=== PATIENT | female | born 1990 | race Caucasian/White ===

== ENCOUNTER 2020-04-27 03:48 | Inpatient (IN) | payer BC ==
[2020-04-27] MEDS: Sodium Chloride 0.9% 10 ML Syringe FLUSH PRN ×2 (04:21→06:39)
[2020-04-27] MEDS ORDERED: Ondansetron 4 MG/2 ML SDV IVPUSH ONE (04:21)
[2020-04-27] MEDS ORDERED: HYDROmorphone 0.5 MG/0.5 ML Syringe IVPUSH ONE ×3 (04:21→09:37)
--- NOTE | 2020-04-27 04:25 | EDM.PDOC ---
ED HPI GENERAL MEDICAL PROBLEM - General Chief Complaint: Abdominal Pain Stated Complaint: ABDOMINAL PAIN Time Seen by Provider: 04/27/20 04:12 Source of Information: Reports: Patient, RN Notes Reviewed - History of Present Illness INITIAL COMMENTS - FREE TEXT/NARRATIVE: 30 yr old female with onset of lower abd and pelvic pain about 1 hr ago. She had felt fine all day yesterday and last evening. Pain is lower abd and pelvis with some radiation to her back. No void sx. She has had nausea but no vomiting or diarrhea. Hx of prior hysterectomy, has 1 ovary. Hx of prior appy. No fever or chills. Bilateral Lower Abdomen Pain Score (Numeric/FACES): 10 - Related Data Allergies Allergy/AdvReac Type Severity Reaction Status Date / Time No Known Allergies Allergy Verified 04/27/20 03:59 Home Meds: Home Meds Acetaminophen [Tylenol Extra Strength] 1,000 mg PO DAILY PRN 04/27/20 [History] Ibuprofen 600 mg PO DAILY PRN 04/27/20 [History] Past Medical History HEENT History: Reports: Impaired Vision Endocrine/Metabolic History: Reports: Obesity/BMI 30+ - Past Surgical History GI Surgical History: Reports: Appendectomy Female Surgical History: Reports: Hysterectomy Social & Family History - Tobacco Use Tobacco Use Status *Q: Current Every Day Tobacco User Years of Tobacco use: 11 Packs/Tins Daily: 0.5 - Caffeine Use Caffeine Use: Reports: Energy Drinks - Recreational Drug Use Recreational Drug Use: No ED ROS GENERAL - Review of Systems Review Of Systems: See Below Constitutional: Denies: Fever, Chills, Diaphoresis HEENT: Reports: No Symptoms Respiratory: Denies: Shortness of Breath Cardiovascular: Denies: Chest Pain GI/Abdominal: Reports: Abdominal Pain, Nausea. Denies: Constipation, Diarrhea, Vomiting Musculoskeletal: Reports: Back Pain Skin: Reports: No Symptoms Neurological: Reports: No Symptoms ED EXAM, GI/ABD - Physical Exam Exam: See Below General Appearance: Alert, Moderate Distress Head: Atraumatic Neck: Supple Respiratory/Chest: No Respiratory Distress, Lungs Clear, Normal Breath Sounds Cardiovascular: Regular Rate, Rhythm GI/Abdominal Exam: Guarding (mild), Rebound, Tender (lower mid abd and pelvis, mild tenderness upper mid abd) Back Exam: No: CVA Tenderness (L), CVA Tenderness (R) Extremities: Normal Inspection Skin Exam: Warm, Dry, Normal Color Course - Vital Signs Last Recorded V/S: Last Vital Signs Temp 98.1 F 04/27/20 19:59 Pulse 95 04/27/20 20:00 Resp 16 04/27/20 19:59 BP 112/68 04/27/20 19:59 Pulse Ox 92 L 04/27/20 20:00 - Orders/Labs/Meds Orders: Active Orders 24 hr Category Date Time Status Antiembolic Devices [RC] BID Care 04/27/20 10:40 Active Intake and Output [RC] 04,16 Care 04/27/20 10:40 Active Notify Provider [RC] ASDIRECTED Care 04/27/20 09:37 Active Oxygen Therapy [RC] PRN Care 04/27/20 10:40 Active RT Aerosol Therapy [RC] ASDIRECTED Care 04/27/20 10:44 Active RT Incentive Spirometry [RC] Q1HWA Care 04/27/20 10:39 Active Up With Assistance [RC] ASDIRECTED Care 04/27/20 10:39 Active VTE/DVT Education [RC] BID Care 04/27/20 10:40 Active Vital Signs [RC] 00,04,08,12,16,20 Care 04/27/20 10:40 Active Clear Liquid Diet [DIET] Diet 04/27/20 Dinner Active Abdomen 2V AP Flat Upright [CR] Stat Exams 04/27/20 04:22 Taken Abdomen Pelvis w Cont [CT] Stat Exams 04/27/20 05:13 Taken BASIC METABOLIC PANEL,BMP [CHEM] AM Lab 04/28/20 05:11 Ordered CBC WITH AUTO DIFF [HEME] AM Lab 04/28/20 05:11 Ordered Acetaminophen [TylenoL] Med 04/27/20 12:00 Active 650 mg PO Q4H Albuterol/Ipratropium [DuoNeb 3.0-0.5 MG/3 ML] Med 04/27/20 10:39 Active 3 ml NEB Q4H PRN HYDROmorphone [Dilaudid] Med 04/27/20 10:39 Active 0.5 mg IVPUSH Q3H PRN Heparin Sodium Med 04/27/20 16:00 Active 5,000 units SUBCUT Q8H Ketorolac [Toradol] Med 04/27/20 16:00 Active 30 mg IVPUSH Q6H Ondansetron [Zofran ODT] Med 04/27/20 16:00 Active 4 mg PO Q6H oxyCODONE Med 04/27/20 10:39 Active 5 mg PO Q4H PRN Peripheral IV Insertion Adult [OM.PC] Stat Oth 04/27/20 04:20 Ordered Schedule Procedure [COMM] Stat Ot 04/27/20 07:42 Ordered Sequential Compression Device [OM.PC] Per Unit Routine Oth 04/27/20 10:40 Ordered Resuscitation Status Routine Resus Stat 04/27/20 10:39 Ordered Medication Orders Acetaminophen (Tylenol) 650 mg PO Q4H [facility] Last Admin: 04/27/20 19:55 Dose: 650 mg Documented by: Admin: 04/27/20 16:35 Dose: 650 mg Documented by: Admin: 04/27/20 12:47 Dose: 650 mg Documented by: SOPHIE Albuterol/Ipratropium (Duoneb 3.0-0.5 Mg/3 Ml) 3 ml NEB Q4H PRN PRN Reason: Shortness Of Breath/wheezing Heparin Sodium (Porcine) (Heparin Sodium) 5,000 units SUBCUT Q8H [facility] Last Admin: 04/27/20 16:36 Dose: 5,000 units Documented by: EACHACORTA Hydromorphone HCl (Dilaudid) 0.5 mg IVPUSH Q3H PRN PRN Reason: Breakthrough Pain Last Admin: 04/27/20 20:19 Dose: 0.5 mg Documented by: TYRON Piperacillin Sod/Tazobactam (Sod 4.5 gm/ Sodium Chloride) 100 mls @ 25 mls/hr IV Q8H [facility] Stop: 04/30/20 22:01 Last Admin: 04/27/20 21:57 Dose: 25 mls/hr Documented by: TYRON Ketorolac Tromethamine (Toradol) 30 mg IVPUSH Q6H [facility] Last Admin: 04/27/20 21:56 Dose: 30 mg Documented by: Admin: 04/27/20 16:32 Dose: 30 mg Documented by: SOPHIE Ondansetron HCl (Zofran Odt) 4 mg PO Q6H [facility] Last Admin: 04/27/20 21:56 Dose: 4 mg Documented by: Admin: 04/27/20 16:36 Dose: 4 mg Documented by: SOPHIE Oxycodone HCl (Oxycodone) 5 mg PO Q4H PRN PRN Reason: Pain (moderate 4-6) Last Admin: 04/27/20 22:17 Dose: 5 mg Documented by: Admin: 04/27/20 18:04 Dose: 5 mg Documented by: SOPHIE Labs: Laboratory Tests 04/27/20 04/27/20 04/27/20 Range/Units 04:07 04:07 07:40 WBC 12.02 H (3.98-10.04) K/mm3 RBC 4.78 (3.98-5.22) M/mm3 Hgb 15.3 (11.2-15.7) gm/dl Hct 46.1 H (34.1-44.9) % MCV 96.4 H (79.4-94.8) fl MCH 32.0 (25.6-32.2) pg MCHC 33.2 (32.2-35.5) g/dl RDW Std Deviation 44.7 (36.4-46.3) fL Plt Count 366 (182-369) K/mm3 MPV 9.6 (9.4-12.3) fl Neut % (Auto) 77.9 H (34.0-71.1) % Lymph % (Auto) 16.5 L (19.3-51.7) % [place] % (Auto) 4.5 L (4.7-12.5) % Eos % (Auto) 0.8 (0.7-5.8) Baso % (Auto) 0.1 (0.1-1.2) % Neut # (Auto) 9.37 H (1.56-6.13) K/mm3 Lymph # (Auto) 1.98 (1.18-3.74) K/mm3 [place] # (Auto) 0.54 H (0.24-0.36) K/mm3 Eos # (Auto) 0.10 (0.04-0.36) K/mm3 Baso # (Auto) 0.01 (0.01-0.08) K/mm3 Manual Slide Review Abnormal smear Sodium 139 (136-145) mEq/L Potassium 3.4 L (3.5-5.1) mEq/L Chloride 103 (98-107) mEq/L Carbon Dioxide 22 (21-32) mEq/L Anion Gap 17.4 H (5-15) BUN 14 (7-18) mg/dL Creatinine 0.9 (0.55-1.02) mg/dL Est Cr Clr Drug Dosing 84.79 mL/min Estimated GFR (MDRD) > 60 (>60) mL/min BUN/Creatinine Ratio 15.6 (14-18) Glucose 139 H (74-106) mg/dL Calcium 8.9 (8.5-10.1) mg/dL Total Bilirubin 0.9 (0.2-1.0) mg/dL AST 11 L (15-37) U/L ALT 25 (14-59) U/L Alkaline Phosphatase 67 (46-116) U/L Total Protein 7.1 (6.4-8.2) g/dl Albumin 3.8 (3.4-5.0) g/dl Globulin 3.3 gm/dL Albumin/Globulin Ratio 1.2 (1-2) Urine Color (Yellow) Urine Appearance (Clear) Urine pH (5.0-8.0) Ur Specific [place] (1.005-1.030) Urine Protein (Negative) Urine Glucose (UA) (Negative) Urine Ketones (Negative) Urine Occult Blood (Negative) Urine Nitrite (Negative) Urine Bilirubin (Negative) Urine Urobilinogen (0.2-1.0) Ur Leukocyte Esterase (Negative) SARS-CoV-2 RNA (JAYNA) Negative (NEGATIVE) 04/27/20 Range/Units 08:48 WBC (3.98-10.04) K/mm3 RBC (3.98-5.22) M/mm3 Hgb (11.2-15.7) gm/dl Hct (34.1-44.9) % MCV (79.4-94.8) fl MCH (25.6-32.2) pg MCHC (32.2-35.5) g/dl RDW Std Deviation (36.4-46.3) fL Plt Count (182-369) K/mm3 MPV (9.4-12.3) fl Neut % (Auto) (34.0-71.1) % Lymph % (Auto) (19.3-51.7) % [place] % (Auto) (4.7-12.5) % Eos % (Auto) (0.7-5.8) Baso % (Auto) (0.1-1.2) % Neut # (Auto) (1.56-6.13) K/mm3 Lymph # (Auto) (1.18-3.74) K/mm3 [place] # (Auto) (0.24-0.36) K/mm3 Eos # (Auto) (0.04-0.36) K/mm3 Baso # (Auto) (0.01-0.08) K/mm3 Manual Slide Review Sodium (136-145) mEq/L Potassium (3.5-5.1) mEq/L Chloride (98-107) mEq/L Carbon Dioxide (21-32) mEq/L Anion Gap (5-15) BUN (7-18) mg/dL Creatinine (0.55-1.02) mg/dL Est Cr Clr Drug Dosing mL/min Estimated GFR (MDRD) (>60) mL/min BUN/Creatinine Ratio (14-18) Glucose (74-106) mg/dL Calcium (8.5-10.1) mg/dL Total Bilirubin (0.2-1.0) mg/dL AST (15-37) U/L ALT (14-59) U/L Alkaline Phosphatase (46-116) U/L Total Protein (6.4-8.2) g/dl Albumin (3.4-5.0) g/dl Globulin gm/dL Albumin/Globulin Ratio (1-2) Urine Color Light yellow (Yellow) Urine Appearance Slt cloudy H (Clear) Urine pH 7.0 (5.0-8.0) Ur Specific [place] 1.020 (1.005-1.030) Urine Protein Negative (Negative) Urine Glucose (UA) Negative (Negative) Urine Ketones Negative (Negative) Urine Occult Blood Negative (Negative) Urine Nitrite Negative (Negative) Urine Bilirubin Negative (Negative) Urine Urobilinogen 0.2 (0.2-1.0) Ur Leukocyte Esterase Negative (Negative) SARS-CoV-2 RNA (JAYNA) (NEGATIVE) Meds: Medications Generic Name Dose Route Start Last Admin Trade Name Freq PRN Reason Stop Dose Admin Acetaminophen 650 mg 04/27/20 12:00 04/27/20 19:55 Tylenol PO 650 mg Q4H LULA Administration Albuterol/Ipratropium 3 ml 04/27/20 10:39 Duoneb 3.0-0.5 Mg/3 Ml NEB Q4H PRN Shortness Of Breath/wheezing Heparin Sodium (Porcine) 5,000 units 04/27/20 16:00 04/27/20 16:36 Heparin Sodium SUBCUT 5,000 units Q8H LULA Administration Hydromorphone HCl 0.5 mg 04/27/20 10:39 04/27/20 20:19 Dilaudid IVPUSH 0.5 mg Q3H PRN Administration Breakthrough Pain Piperacillin Sod/Tazobactam 100 mls @ 25 mls/hr 04/27/20 22:00 04/27/20 21:57 Sod 4.5 gm/ Sodium Chloride IV 04/30/20 22:01 25 mls/hr Q8H LULA Administration Ketorolac Tromethamine 30 mg 04/27/20 16:00 04/27/20 21:56 Toradol IVPUSH 30 mg Q6H LULA Administration Ondansetron HCl 4 mg 04/27/20 16:00 04/27/20 21:56 Zofran Odt PO 4 mg Q6H LULA Administration Oxycodone HCl 5 mg 04/27/20 10:39 04/27/20 22:17 Oxycodone PO 5 mg Q4H PRN Administration Pain (moderate 4-6) Discontinued Medications Generic Name Dose Route Start Last Admin Trade Name Freq PRN Reason Stop Dose Admin Bupivacaine HCl/Epinephrine Bitart Confirm 04/27/20 07:57 Marcaine 0.5%/Epinephrine 1:200,000 Administered 04/27/20 07:58 Dose 50 ml .ROUTE .STK-MED ONE Cefazolin Sodium 2 gm 04/27/20 08:40 Ancef .ROUTE 04/27/20 08:41 .STK-MED ONE Diphenhydramine HCl 25 mg 04/27/20 09:37 Benadryl IVPUSH 04/27/20 13:00 Q6H PRN pruritis Fentanyl Confirm 04/27/20 08:17 Sublimaze Administered 04/27/20 08:18 Dose 250 mcg .ROUTE .STK-MED ONE Fentanyl Confirm 04/27/20 09:30 Sublimaze Administered 04/27/20 09:31 Dose 100 mcg .ROUTE .STK-MED ONE Fentanyl 50 mcg 04/27/20 09:37 04/27/20 11:20 Sublimaze IVPUSH 04/27/20 13:00 50 mcg Q5M PRN Administration Pain Fentanyl Confirm 04/27/20 09:54 Sublimaze Administered 04/27/20 09:55 Dose 100 mcg .ROUTE .STK-MED ONE Fentanyl Confirm 04/27/20 10:27 Sublimaze Administered 04/27/20 10:28 Dose 100 mcg .ROUTE .STK-MED ONE Hydromorphone HCl 0.5 mg 04/27/20 04:21 04/27/20 04:30 Dilaudid IVPUSH 04/27/20 04:22 0.5 mg ONETIME ONE Administration Hydromorphone HCl 0.5 mg 04/27/20 05:12 04/27/20 05:22 Dilaudid IVPUSH 04/27/20 05:13 0.5 mg ONETIME ONE Administration Hydromorphone HCl Confirm 04/27/20 09:00 Dilaudid Administered 04/27/20 09:01 Dose 0.5 mg .ROUTE .STK-MED ONE Hydromorphone HCl Confirm 04/27/20 09:17 Dilaudid Administered 04/27/20 09:18 Dose 0.5 mg .ROUTE .STK-MED ONE Hydromorphone HCl 0.5 mg 04/27/20 09:37 04/27/20 10:45 Dilaudid IVPUSH 04/27/20 09:38 0.5 mg ONETIME ONE Administration Hydromorphone HCl 0.5 mg 04/27/20 11:22 04/27/20 11:31 Dilaudid IVPUSH 0.5 mg ONETIME PRN Administration Pain (severe 7-10) Sodium Chloride 1,000 mls @ 150 mls/hr 04/27/20 04:30 04/27/20 05:20 Normal Saline IV 999 mls/hr ASDIRECTED LULA Infusion Sodium Chloride 1,000 mls @ 999 mls/hr 04/27/20 05:15 04/27/20 06:18 Normal Saline IV 999 mls/hr ONETIME LULA Administration Lidocaine HCl Confirm 04/27/20 08:19 Xylocaine-Mpf 1% Administered 04/27/20 08:20 Dose 4 mls @ as directed .ROUTE .STK-MED ONE Metronidazole Confirm 04/27/20 08:52 Flagyl 500 Mg In Ns 100 Ml Administered 04/27/20 08:53 Dose 100 mls @ as directed .ROUTE .STK-MED ONE Lactated Ringer's Confirm 04/27/20 09:43 Ringers, Lactated Administered 04/27/20 09:44 Dose 1,000 mls @ as directed .ROUTE .STK-MED ONE Dextrose/Sodium Chloride 1,000 mls @ 125 mls/hr 04/27/20 10:45 Dextrose 5%-1/2 Ns IV ASDIRECTED LULA Piperacillin Sod/Tazobactam 100 mls @ 200 mls/hr 04/27/20 14:00 04/27/20 14:11 Sod 4.5 gm/ Sodium Chloride IV 04/27/20 14:29 200 mls/hr ONETIME ONE Administration Iopamidol 100 ml 04/27/20 06:24 04/27/20 06:39 Isovue-300 (61%) IVPUSH 04/27/20 06:25 100 ml ONETIME ONE Administration Ketorolac Tromethamine 30 mg 04/27/20 10:00 Toradol .ROUTE 04/27/20 10:01 .STK-MED ONE Lidocaine/Epinephrine Confirm 04/27/20 07:57 Xylocaine 1% With Epinephrine 1:100,000 Administered 04/27/20 07:58 Dose 40 ml .ROUTE .STK-MED ONE Metoclopramide HCl 5 mg 04/27/20 05:12 04/27/20 05:21 Reglan IVPUSH 04/27/20 05:13 5 mg ONETIME ONE Administration Midazolam HCl Confirm 04/27/20 08:16 Versed 1 Mg/Ml Administered 04/27/20 08:17 Dose 2 mg .ROUTE .STK-MED ONE Ondansetron HCl 4 mg 04/27/20 04:21 04/27/20 04:29 Zofran IVPUSH 04/27/20 04:22 4 mg ONETIME ONE Administration Ondansetron HCl 4 mg 04/27/20 09:37 Zofran IVPUSH 04/27/20 17:00 ONETIME PRN Nausea/Vomiting Ondansetron HCl Confirm 04/27/20 09:52 Zofran Administered 04/27/20 09:53 Dose 4 mg .ROUTE .STK-MED ONE Propofol Confirm 04/27/20 08:19 Diprivan 20 Ml Administered 04/27/20 08:20 Dose 200 mg .ROUTE .STK-MED ONE Rocuronium [place] Confirm 04/27/20 08:18 Zemuron Administered 04/27/20 08:19 Dose 50 mg .ROUTE .STK-MED ONE Sodium Chloride 10 ml 04/27/20 04:20 04/27/20 06:39 Saline Flush FLUSH 10 ml ASDIRECTED PRN Administration Keep Vein Open - Re-Assessments/Exams Free Text/Narrative Re-Assessment/Exam: 04/27/20 05:16 Did get some relief from initial zofran and 0.5 mg IV and now pain is once again moderately severe. Continued quite marked tenderness bilat lower abd and pelvis, also tender mid and upper mid abd. WBC 12,000. Flat and upright shows moderate stool and gas in colon, no air fluid levels. Concern for possible ovarian torsion due to sudden onset, other 3tiology, constipation? although patient denies that, Will get CT Abd/pelvis. Repeat 0.5 mg dilaudid IV. 04/27/20 07:[address] indicates small amt of free air, mild free fluid in pelvis, see report for details. On re exam still very tender lower abd with moderate tenderness mid and upper abd. Continues to have rebound tenderness as well. Have discussed with Dr Cassidy, General Surgeon naval gunfire liaison officer will come see patient. Departure - Departure Time of Disposition: 07:00 Disposition: DC/Tfer to [facility] Condition: Serious Clinical Impression: Pelvic pain Abdominal pain Qualifiers: Abdominal location: lower abdomen, unspecified Qualified Code(s): R10.30 - Lower abdominal pain, unspecified - Discharge Information Sepsis Event Note (ED) - Evaluation Sepsis Screening Result: No Definite Risk - Focused Exam Vital Signs: Vital Signs Temp Temp Pulse Resp BP BP Pulse Ox 04/27/20 13:17 101 H 132/83 94 L 04/27/20 13:00 125/53 L 04/27/20 12:47 100 92/67 96 04/27/20 12:32 101 H 118/67 97 04/27/20 12:16 92 116/59 L 96 04/27/20 12:12 98.2 F 103 H 109/70 97 04/27/20 11:40 98.2 F 14 113/66 92 L 04/27/20 11:30 15 112/69 92 L 04/27/20 11:24 04/27/20 11:15 20 106/82 96 04/27/20 11:02 04/27/20 11:00 16 112/75 99 04/27/20 10:50 17 117/70 94 L 04/27/20 10:35 98.2 F 16 126/75 100 Pulse Ox 04/27/20 13:17 04/27/20 13:00 04/27/20 12:47 04/27/20 12:32 04/27/20 12:16 04/27/20 12:12 04/27/20 11:40 04/27/20 11:30 04/27/20 11:24 97 04/27/20 11:15 04/27/20 11:02 98 04/27/20 11:00 04/27/20 10:50 04/27/20 10:35 100 ED Communication - Discussed Case With (1) Discussed Case With (1): Admitting Provider (Dr Cassidy, decision to take to surgery at around 07:12.) - My Orders Last 24 Hours: My Active Orders 04/27/20 04:20 Peripheral IV Insertion Adult [OM.PC] Stat 04/27/20 04:22 Abdomen 2V AP Flat Upright [CR] Stat 04/27/20 05:13 Abdomen Pelvis w Cont [CT] Stat 04/27/20 07:42 Schedule Procedure [COMM] Stat - Assessment/Plan Last 24 Hours: My Active Orders 04/27/20 04:20 Peripheral IV Insertion Adult [OM.PC] Stat 04/27/20 04:22 Abdomen 2V AP Flat Upright [CR] Stat 04/27/20 05:13 Abdomen Pelvis w Cont [CT] Stat 04/27/20 07:42 Schedule Procedure [COMM] Stat
[2020-04-27] MEDS ORDERED: Sodium Chloride 0.9% 1,000 ML IV SCH ×2 (04:30→05:15)
[2020-04-27] MEDS ORDERED: Metoclopramide 10 MG/2 ML SDV IVPUSH ONE (05:12)
[2020-04-27] MEDS ORDERED: Iopamidol 612 MG/ML 100 ML Bottle IVPUSH ONE (06:24)
--- NOTE | 2020-04-27 07:34 | PCM.HP.2 ---
H&P History of Present Illness - General Date of Service: 04/27/20 Source of Information: Patient, Provider History Limitations: Reports: No Limitations - History of Present Illness Initial Comments - Free Text/Narative: 30-year-old lady who presents to the emergency department with acute onset of abdominal pain that started last evening. She reports she awakened during the night to severe lower abdominal/ pelvic pain. She thought she had strained some muscle while turning in the bed. She proceeded to the emergency department shortly thereafter. She reports feeling normal and in good health immediately prior to the onset of pain. She has a normal daily bowel movement. She denies any hematochezia or melena. On evaluation, she was noted by the ED provider to have tenderness in the lower abdomen. She had laboratory and CT evaluation. Her WBC count was elevated over 12,000, her CT findings indicated pneumoperitoneum with some free fluid in the pelvis. Surgery was consulted. Bilateral Lower Abdomen Pain Score (Numeric/FACES): 10 - Related Data Allergies/Adverse Reactions: Allergies Allergy/AdvReac Type Severity Reaction Status Date / Time No Known Allergies Allergy Verified 04/27/20 03:59 Home Medications: Home Meds Acetaminophen [Tylenol Extra Strength] 1,000 mg PO DAILY PRN 04/27/20 [History] Ibuprofen 600 mg PO DAILY PRN 04/27/20 [History] Past Medical History HEENT History: Reports: Impaired Vision Endocrine/Metabolic History: Reports: Obesity/BMI 30+ - Past Surgical History GI Surgical History: Reports: Appendectomy Female Surgical History: Reports: Hysterectomy Social & Family History - Family History Cardiac: Denies: High Cholesterol, Hypertension, [place] Neurological: Denies: CVA - Tobacco Use Tobacco Use Status *Q: Current Every Day Tobacco User Years of Tobacco use: 11 Packs/Tins Daily: 0.5 - Caffeine Use Caffeine Use: Reports: Energy Drinks - Recreational Drug Use Recreational Drug Use: No H&P Review of Systems - Review of Systems: Review Of Systems: See Below General: Reports: No Symptoms HEENT: Reports: No Symptoms Pulmonary: Reports: No Symptoms Cardiovascular: Reports: No Symptoms Gastrointestinal: Reports: Abdominal Pain, Nausea Genitourinary: Reports: No Symptoms Musculoskeletal: Reports: No Symptoms Skin: Reports: No Symptoms Neurological: Reports: No Symptoms Hematologic/Lymphatic: Reports: No Symptoms Exam - Exam Exam: See Below - Vital Signs Vital Signs: Last Vital Signs Temp 35.3 C L 04/27/20 03:56 Pulse 80 04/27/20 03:56 Resp 18 04/27/20 03:56 BP 127/92 H 04/27/20 03:56 Pulse Ox 95 04/27/20 03:56 Weight: 92.986 kg - Exam Quality Assessment: Supplemental Oxygen General: Alert, Oriented HEENT: Conjunctiva Clear, EOMI Neck: Supple Lungs: Normal Respiratory Effort Cardiovascular: Regular Rate, Regular Rhythm GI/Abdominal Exam: Soft, Guarding (Diffusely on abdomen), Rebound Extremities: No Pedal Edema Peripheral Pulses: 2+: Dorsalis Pedis (L), Dorsalis Pedis (R) Skin: Warm, Dry, Rash (Light brown 1cm macules in confluent configurations on the thoracoabdominal skin) Neurological: Cranial Nerves Intact Neuro Extensive - Mental Status: Alert, Oriented x3, Normal Mood/Affect - Patient Data Lab Results Last 24 hrs: Laboratory Results - last 24 hr 04/27/20 04/27/20 Range/Units 04:07 04:07 WBC 12.02 H (3.98-10.04) K/mm3 RBC 4.78 (3.98-5.22) M/mm3 Hgb 15.3 (11.2-15.7) gm/dl Hct 46.1 H (34.1-44.9) % MCV 96.4 H (79.4-94.8) fl MCH 32.0 (25.6-32.2) pg MCHC 33.2 (32.2-35.5) g/dl RDW Std Deviation 44.7 (36.4-46.3) fL Plt Count 366 (182-369) K/mm3 MPV 9.6 (9.4-12.3) fl Neut % (Auto) 77.9 H (34.0-71.1) % Lymph % (Auto) 16.5 L (19.3-51.7) % [place] % (Auto) 4.5 L (4.7-12.5) % Eos % (Auto) 0.8 (0.7-5.8) Baso % (Auto) 0.1 (0.1-1.2) % Neut # (Auto) 9.37 H (1.56-6.13) K/mm3 Lymph # (Auto) 1.98 (1.18-3.74) K/mm3 [place] # (Auto) 0.54 H (0.24-0.36) K/mm3 Eos # (Auto) 0.10 (0.04-0.36) K/mm3 Baso # (Auto) 0.01 (0.01-0.08) K/mm3 Manual Slide Review Abnormal smear Sodium 139 (136-145) mEq/L Potassium 3.4 L (3.5-5.1) mEq/L Chloride 103 (98-107) mEq/L Carbon Dioxide 22 (21-32) mEq/L Anion Gap 17.4 H (5-15) BUN 14 (7-18) mg/dL Creatinine 0.9 (0.55-1.02) mg/dL Est Cr Clr Drug Dosing 84.79 mL/min Estimated GFR (MDRD) > 60 (>60) mL/min BUN/Creatinine Ratio 15.6 (14-18) Glucose 139 H (74-106) mg/dL Calcium 8.9 (8.5-10.1) mg/dL Total Bilirubin 0.9 (0.2-1.0) mg/dL AST 11 L (15-37) U/L ALT 25 (14-59) U/L Alkaline Phosphatase 67 (46-116) U/L Total Protein 7.1 (6.4-8.2) g/dl Albumin 3.8 (3.4-5.0) g/dl Globulin 3.3 gm/dL Albumin/Globulin Ratio 1.2 (1-2) Result Diagrams: 04/27/20 04:07 04/27/20 04:07 Sepsis Event Note - Evaluation Sepsis Screening Result: No Definite Risk - Focused Exam Vital Signs: Vital Signs Temp Pulse Resp BP Pulse Ox 04/27/20 03:56 35.3 C L 80 18 127/92 H 95 *Q Meaningful Use (ADM) - VTE Risk Assess *Q Each Risk Factor Represents 1 Point: Obesity ( BMI > 25 kg/m2) Total Score 1 Point Risk Factors: 1 Each Risk Factor Represents 2 Points: Major surgery greater than 45 minutes Total Score 2 Point Risk Factors: 2 - Problem List (1) Pneumoperitoneum of unknown etiology SNOMED Code(s): 13041892 ICD Code: K66.8 - OTHER SPECIFIED DISORDERS OF PERITONEUM Status: Acute Current Visit: Yes (2) Abdominal pain SNOMED Code(s): 81593503 ICD Code: R10.9 - UNSPECIFIED ABDOMINAL PAIN Status: Acute Current Visit: Yes Qualifiers: Abdominal location: lower abdomen, unspecified Qualified Code(s): R10.30 - Lower abdominal pain, unspecified Problem List Initiated/Reviewed/Updated: Yes Orders Last 24hrs: Active Orders 24 hr Category Date Time Status Peripheral IV Care [RC] . DIRECTED Care 04/27/20 04:21 Active Abdomen 2V AP Flat Upright [CR] Stat Exams 04/27/20 04:22 Taken Abdomen Pelvis w Cont [CT] Stat Exams 04/27/20 05:13 Taken CORONAVIRUS COVID-19 JAYNA [MOLEC] Stat Lab 04/27/20 07:28 Ordered UA W/GARETT RFLX IF INDICATED [URIN] Stat Lab 04/27/20 04:20 Ordered Sodium Chloride 0.9% [Normal Saline] 1,000 ml Med 04/27/20 04:30 Active IV ASDIRECTED Sodium Chloride 0.9% [Normal Saline] 1,000 ml Med 04/27/20 05:15 Active IV ONETIME Sodium Chloride 0.9% [Saline Flush] Med 04/27/20 04:20 Active 10 ml FLUSH ASDIRECTED PRN Peripheral IV Insertion Adult [OM.PC] Stat Oth 04/27/20 04:20 Ordered Medication Orders Sodium Chloride (Normal Saline) 1,000 mls @ 150 mls/hr IV ASDIRECTED LULA Last Infusion: 04/27/20 05:20 Dose: 999 mls/hr Documented by: Admin: 04/27/20 04:29 Dose: 150 mls/hr Documented by: PADILLA Sodium Chloride (Normal Saline) 1,000 mls @ 999 mls/hr IV ONETIME LULA Last Admin: 04/27/20 06:18 Dose: 999 mls/hr Documented by: PADILLA Sodium Chloride (Saline Flush) 10 ml FLUSH ASDIRECTED PRN PRN Reason: Keep Vein Open Last Admin: 04/27/20 06:39 Dose: 10 ml Documented by: Admin: 04/27/20 04:21 Dose: 10 ml Documented by: PADILLA Assessment/Plan Comment:: 30-year-old lady with pneumoperitoneum of uncertain etiology -We will plan for exploratory laparotomy with possible bowel resection, possible ostomy, and any other indicated procedure. Discussed with risks of bleeding, infection, and injury to intra-abdominal structures. Her written consent was obtained. I discussed with the patient that it may be that we find no discrete pathology, the patient is however agreeable to proceeding -COVID repeat test not needed due to recent COVID illness and recovery -N.p.o. with IV fluid resuscitation -Will need inpatient stay postoperatively Anahi Tran MD - Mortality Measure Prognosis:: Good
[2020-04-27] MEDS ORDERED: Bupivacaine 0.5%/EPINEPHrine 1:200,000 50 ML MDV ONE (07:57)
[2020-04-27] MEDS ORDERED: Lidocaine 1% with EPINEPHrine 1:100,000 20 ML MDV ONE (07:57)
--- NOTE | 2020-04-27 08:07 | PCM.PREANE ---
Preanesthetic Assessment - Anesthesia/Transfusion/Family Hx Anesthesia History: Prior Anesthesia Without Reaction Family History of Anesthesia Reaction: No Transfusion History: No Prior Transfusion(s) - Review of Systems General: No Symptoms Pulmonary: No Symptoms Cardiovascular: No Symptoms Gastrointestinal: Abdominal Pain Neurological: No Symptoms Other: Reports: None - Physical Assessment NPO Status Date: 04/27/20 NPO Status Time: 06:30 Vital Signs: Last Vital Signs Temp 35.3 C L 04/27/20 03:56 Pulse 80 04/27/20 03:56 Resp 18 04/27/20 03:56 BP 127/92 H 04/27/20 03:56 Pulse Ox 95 04/27/20 03:56 Height: 1.68 m Weight: 92.986 kg ASA Class: 2E Mental Status: Alert & Oriented x3 Airway Class: Mallampati = 1 Dentition: Reports: Normal Dentition Thyro-Mental Finger Breadths: 3 Mouth Opening Finger Breadths: 3 ROM/Head Extension: Full Lungs: Clear to Auscultation, Normal Respiratory Effort - Lab Values: Laboratory Last Values WBC 12.02 K/mm3 (3.98-10.04) H 04/27/20 04:07 RBC 4.78 M/mm3 (3.98-5.22) 04/27/20 04:07 Hgb 15.3 gm/dl (11.2-15.7) 04/27/20 04:07 Hct 46.1 % (34.1-44.9) H 04/27/20 04:07 MCV 96.4 fl (79.4-94.8) H 04/27/20 04:07 MCH 32.0 pg (25.6-32.2) 04/27/20 04:07 MCHC 33.2 g/dl (32.2-35.5) 04/27/20 04:07 RDW Std Deviation 44.7 fL (36.4-46.3) 04/27/20 04:07 Plt Count 366 K/mm3 (182-369) 04/27/20 04:07 MPV 9.6 fl (9.4-12.3) 04/27/20 04:07 Neut % (Auto) 77.9 % (34.0-71.1) H 04/27/20 04:07 Lymph % (Auto) 16.5 % (19.3-51.7) L 04/27/20 04:07 [place] % (Auto) 4.5 % (4.7-12.5) L 04/27/20 04:07 Eos % (Auto) 0.8 (0.7-5.8) 04/27/20 04:07 Baso % (Auto) 0.1 % (0.1-1.2) 04/27/20 04:07 Neut # (Auto) 9.37 K/mm3 (1.56-6.13) H 04/27/20 04:07 Lymph # (Auto) 1.98 K/mm3 (1.18-3.74) 04/27/20 04:07 [place] # (Auto) 0.54 K/mm3 (0.24-0.36) H 04/27/20 04:07 Eos # (Auto) 0.10 K/mm3 (0.04-0.36) 04/27/20 04:07 Baso # (Auto) 0.01 K/mm3 (0.01-0.08) 04/27/20 04:07 Manual Slide Review Abnormal smear 04/27/20 04:07 Sodium 139 mEq/L (136-145) 04/27/20 04:07 Potassium 3.4 mEq/L (3.5-5.1) L 04/27/20 04:07 Chloride 103 mEq/L (98-107) 04/27/20 04:07 Carbon Dioxide 22 mEq/L (21-32) 04/27/20 04:07 Anion Gap 17.4 (5-15) H 04/27/20 04:07 BUN 14 mg/dL (7-18) 04/27/20 04:07 Creatinine 0.9 mg/dL (0.55-1.02) 04/27/20 04:07 Est Cr Clr Drug Dosing 84.79 mL/min 04/27/20 04:07 Estimated GFR (MDRD) > 60 mL/min (>60) 04/27/20 04:07 BUN/Creatinine Ratio 15.6 (14-18) 04/27/20 04:07 Glucose 139 mg/dL (74-106) H 04/27/20 04:07 Calcium 8.9 mg/dL (8.5-10.1) 04/27/20 04:07 Total Bilirubin 0.9 mg/dL (0.2-1.0) 04/27/20 04:07 AST 11 U/L (15-37) L 04/27/20 04:07 ALT 25 U/L (14-59) 04/27/20 04:07 Alkaline Phosphatase 67 U/L (46-116) 04/27/20 04:07 Total Protein 7.1 g/dl (6.4-8.2) 04/27/20 04:07 Albumin 3.8 g/dl (3.4-5.0) 04/27/20 04:07 Globulin 3.3 gm/dL 04/27/20 04:07 Albumin/Globulin Ratio 1.2 (1-2) 04/27/20 04:07 - Allergies Allergies/Adverse Reactions: Allergies Allergy/AdvReac Type Severity Reaction Status Date / Time No Known Allergies Allergy Verified 04/27/20 03:59 - Acknowledgements Anesthesia Type Planned: General Anesthesia Pt an Appropriate Candidate for the Planned Anesthesia: Yes Alternatives and Risks of Anesthesia Discussed w Pt/Guardian: Yes Pt/Guardian Understands and Agrees with Anesthesia Plan: Yes PreAnesthesia Questionnaire HEENT History: Reports: Impaired Vision Cardiovascular History: Reports: None Respiratory History: Reports: None Gastrointestinal History: Reports: None Genitourinary History: Reports: None Psychiatric History: Reports: None Endocrine/Metabolic History: Reports: Obesity/BMI 30+ - Past Surgical History HEENT Surgical History: Reports: Oral Surgery GI Surgical History: Reports: Appendectomy Female Surgical History: Reports: Hysterectomy - SUBSTANCE USE Tobacco Use Status *Q: Current Every Day Tobacco User Recreational Drug Use History: No - HOME MEDS Home Medications: Home Meds . [No Known Home Meds] 04/27/20 [History] - CURRENT (IN HOUSE) MEDS Current Meds: Current Medications Sodium Chloride (Normal Saline) 1,000 mls @ 150 mls/hr IV ASDIRECTED LULA Last Infusion: 04/27/20 05:20 Dose: 999 mls/hr Documented by: Sodium Chloride (Normal Saline) 1,000 mls @ 999 mls/hr IV ONETIME LULA Last Admin: 04/27/20 06:18 Dose: 999 mls/hr Documented by: Sodium Chloride (Saline Flush) 10 ml FLUSH ASDIRECTED PRN PRN Reason: Keep Vein Open Last Admin: 04/27/20 06:39 Dose: 10 ml Documented by: Discontinued Medications Bupivacaine HCl/Epinephrine Bitart (Marcaine 0.5%/Epinephrine 1:200,000) Confirm Administered Dose 50 ml .ROUTE .STK-MED ONE Stop: 04/27/20 07:58 Hydromorphone HCl (Dilaudid) 0.5 mg IVPUSH ONETIME ONE Stop: 04/27/20 04:22 Last Admin: 04/27/20 04:30 Dose: 0.5 mg Documented by: Hydromorphone HCl (Dilaudid) 0.5 mg IVPUSH ONETIME ONE Stop: 04/27/20 05:13 Last Admin: 04/27/20 05:22 Dose: 0.5 mg Documented by: Iopamidol (Isovue-300 (61%)) 100 ml IVPUSH ONETIME ONE Stop: 04/27/20 06:25 Last Admin: 04/27/20 06:39 Dose: 100 ml Documented by: Lidocaine/Epinephrine (Xylocaine 1% With Epinephrine 1:100,000) Confirm Adminis tered Dose 40 ml .ROUTE .STK-MED ONE Stop: 04/27/20 07:58 Metoclopramide HCl (Reglan) 5 mg IVPUSH ONETIME ONE Stop: 04/27/20 05:13 Last Admin: 04/27/20 05:21 Dose: 5 mg Documented by: Ondansetron HCl (Zofran) 4 mg IVPUSH ONETIME ONE Stop: 04/27/20 04:22 Last Admin: 04/27/20 04:29 Dose: 4 mg Documented by:
[2020-04-27] MEDS ORDERED: Midazolam 1 MG/ML 2 ML SDV ONE (08:16)
[2020-04-27] MEDS ORDERED: fentaNYL 250 MCG/5 ML SDV ONE (08:17)
[2020-04-27] MEDS ORDERED: Rocuronium 50 MG/5 ML Vial ONE (08:18)
[2020-04-27] MEDS ORDERED: Lidocaine 1% 4 ML ONE (08:19)
[2020-04-27] MEDS ORDERED: Propofol 200 MG/20 ML SDV ONE (08:19)
[2020-04-27] MEDS ORDERED: Succinylcholine/Sod PF 100 MG/5 ML SYRINGE IV ONE (08:22)
[2020-04-27] MEDS ORDERED: ceFAZolin 1 GM Vial ONE (08:40)
[2020-04-27] MEDS ORDERED: metroNIDAZOLE/Normal Saline 100 ML ONE (08:52)
[2020-04-27] MEDS ORDERED: HYDROmorphone 0.5 MG/0.5 ML Syringe ONE ×2 (09:00→09:17)
[2020-04-27] MEDS ORDERED: fentaNYL 100 MCG/2 ML SDV ONE ×3 (09:30→10:27)
[2020-04-27] MEDS ORDERED: diphenhydrAMINE 50 MG/ML SDV IVPUSH PRN (09:37)
[2020-04-27] MEDS ORDERED: fentaNYL 100 MCG/2 ML SDV IVPUSH PRN (09:37)
[2020-04-27] MEDS ORDERED: Ondansetron 4 MG/2 ML SDV IVPUSH PRN (09:37)
[2020-04-27] MEDS ORDERED: Lactated Ringers 1,000 ML ONE (09:43)
[2020-04-27] MEDS ORDERED: Ondansetron 4 MG/2 ML SDV ONE (09:52)
[2020-04-27] MEDS ORDERED: Ketorolac 30 MG/ML SDV ONE (10:00)
--- NOTE | 2020-04-27 10:36 | PCM.OPNOTE ---
- General Post-Op/Procedure Note Date of Surgery/Procedure: 04/27/20 Operative Procedure(s): 1. Exploratory laparotomy. 2. Repair of vaginal cuff. 3. Abdominal washout Findings: 1. Murky fluid in the abdomen and pelvis with 2. purulent fluid consistent with abscess concentrated in the pelvis, and some over the liver 3. Vaginal cuff dehiscence Pre Op Diagnosis: Pneumoperitoneum Post-Op Diagnosis: Vaginal cuff dehiscence with abdominal abscess Anesthesia Technique: General ET Tube Primary Surgeon: Anahi Tran Secondary Surgeon: Wes Juarez Anesthesia Provider: Samantha Jimenez Pathology: none Fluid Replacement, Intraop: 1,700 Output, Urine Amount: 700 EBL in mLs: 50 Drain/Tube Comments:: castaneda catheter Complications: none apparent Condition: Good
[2020-04-27] MEDS ORDERED: Albuterol/Ipratropium 3.0-0.5 MG/3 ML Neb Soln NEB PRN (10:39)
--- NOTE | 2020-04-27 10:42 | PCM.POSTAN ---
POST ANESTHESIA ASSESSMENT - MENTAL STATUS Mental Status: Alert, Oriented - VITAL SIGNS Vital Signs: Last Vital Signs Temp 35.3 C L 04/27/20 03:56 Pulse 80 04/27/20 03:56 Resp 18 04/27/20 03:56 BP 127/92 H 04/27/20 03:56 Pulse Ox 95 04/27/20 03:56 - RESPIRATORY Respiratory Status: Respiratory Rate WNL, Airway Patent, O2 Saturation Stable - CARDIOVASCULAR CV Status: Pulse Rate WNL, Blood Pressure Stable - GASTROINTESTINAL GI Status: No Symptoms - POST OP HYDRATION Hydration Status: Adequate & Stable
[2020-04-27] MEDS ORDERED: Dextrose 5%-0.45% NaCl 1,000 ML IV SCH (10:45)
--- NOTE | 2020-04-27 10:46 | PCM.PRNOTE ---
- Free Text/Narrative Note: Operative Report Date of surgery: April 27 2020 Preoperative diagnosis: Pneumoperitoneum Postoperative diagnosis: Vaginal cuff dehiscence with intra-abdominal abscess Procedure: 1. Exploratory laparotomy 2. Repair of vaginal cuff dehiscence 3. Abdominal washout Surgeon: Anahi Tran MD and Wes Juarez MD Anesthesia: General endotracheal Tire Builder: Samantha Jimenez CRNA Estimated blood loss: 50 mL IV fluids: 1700 mL Urine output: 700 mL Drains and lines: Briscoe catheter Findings: 1. Murky fluid in the abdomen and pelvis with 2. purulent fluid consistent with abscess concentrated in the pelvis, and some over the liver 3. Vaginal cuff dehiscence Pathology: None Indication for the procedure: The patient is a 30-year-old female who presented to the emergency department with acute onset of abdominal pain. She underwent evaluation with emergency medicine provider that included a CT scan of her abdomen pelvis. She had findings of pneumoperitoneum and free fluid in the pelvis. There was no clear etiology of this as the bowel and other organs did not have any significant pathology. The patient did have findings of acute abdomen and peritonitis. She was consented for an exploratory laparotomy, possible bowel resection, possible ostomy, and any other indicated procedure. We discussed risks of bleeding, infection, and risk to intra-abdominal organs. Her written consent was obtained Description of the procedure: The patient was taken back to the operating room and placed in supine position on the operating table. She had successful induction of general anesthesia and was intubated without difficulty. She had administration of antibiotics according to SCIP guidelines, Ancef 2 g IV and metronidazole 500 mg IV. A Briscoe catheter was placed with return of yellow urine containing some sediment. She was then prepped and draped in standard surgical fashion. We began by marking a midline vertical incision which was then opened using the scalpel and deepened down to the level of fascia using the Bovie device. The fascia was then entered gently using the Bovie device. There was some murky fluid that was immediately evident in the abdomen. We then proceeded to place the Guy retractor for better visualization. During this we did find purulent drainage within the abdomen. We then proceeded to explore the abdomen. There was a collection of purulent fluid in the right upper quadrant near liver. This was suctioned. In the pelvis there was more concentrated purulent fluid consistent with an abscess. We proceeded to more fully explore the pelvis and noticed some fibrinous exudate and an abnormal appearance at her vaginal cuff. There was concern for vaginal dehiscence. We proceeded to run the bowel. Starting at the ligament of Treitz, the small bowel was fully evaluated without signs of any erythema or induration. The colon was mildly dilated but otherwise normal in appearance. The patient did have evidence of a previous appendectomy. An intraoperative consult with the on-call [employer] SPLICER, Dr. Wes Juarez, was then obtained. He scrubbed into the procedure and evaluated the vaginal cuff. Please see details of his dictation for this portion of the procedure. We did determine that the patient had evidence of a vaginal cuff dehiscence. This was then oversewn using 0 PDS and imbricated with a second layer of 0 PDS. The abdomen was then copiously irrigated with 3 L of warm saline. There was no evidence of any other intra-abdominal pathology. We then closed the abdomen using a running 0 PDS suture on the fascia. The abdominal wall fat was then irrigated and the skin reapproximated using albina. A dry dressing was applied. The patient was then awakened and extubated without difficulty. She was transported to the PACU in stable condition. Briscoe catheter was left in place for continued monitoring of urine output. She will recover on the floor on continued antibiotics and awaiting return of bowel function. Anahi Tran MD General Surgery
[2020-04-27] MEDS ORDERED: HYDROmorphone 0.5 MG/0.5 ML Syringe IVPUSH PRN (11:22)
--- NOTE | 2020-04-27 11:30 | PCM48HPAN ---
Post Anesthesia Note - EVALUATION WITHIN 48HRS OF ANESTHETIC Vital Signs in Normal Range: Yes Patient Participated in Evaluation: Yes Respiratory Function Stable: Yes Airway Patent: Yes Cardiovascular Function Stable: Yes Hydration Status Stable: Yes Pain Control Satisfactory: No Nausea and Vomiting Control Satisfactory: Yes Mental Status Recovered: Yes Vital Signs: Last Vital Signs Temp 36.8 C 04/27/20 10:35 Pulse 80 04/27/20 03:56 Resp 20 04/27/20 11:15 BP 106/82 04/27/20 11:15 Pulse Ox 97 04/27/20 11:24
[2020-04-27] MEDS: Acetaminophen 325 MG Tab PO SCH ×3 (12:47→19:55)
[2020-04-27] MEDS ORDERED: Piperacillin/Tazobactam 4.5 GM in Sodium Chloride 0.9% 100 ML IV ONE (14:00)
--- NOTE | 2020-04-27 14:00 | PCM.OPNOTE ---
- General Post-Op/Procedure Note Date of Surgery/Procedure: 04/27/20 Operative Procedure(s): Repair of vaginal dehiscence following previous total laparoscopic hysterectomy Findings: Vaginal cuff with dehiscence along previous suture line measuring approximately 4 mm in length with small amount of erythema and granulation tissue present around the vaginal cuff dehiscence. No bleeding noted. Normal-appearing ovaries bilaterally. Normal large and small intestines per examination by Dr. Tran. Pre Op Diagnosis: Acute surgical abdomen, pelvic abscess and pneumoperitoneum on imaging Post-Op Diagnosis: Same with vaginal cuff dehiscence of 4 mm area at the vaginal cuff Primary Surgeon: Anahi Tran Secondary Surgeon: Wes Juarez Anesthesia Provider: Samantha Jimenez Pathology: None Fluid Replacement, Intraop: 1,700 Output, Urine Amount: 700 EBL in mLs: 50 Complications: None Condition: Good Free Text/Narrative:: Intake & Output 04/26/20 04/27/20 04/27/20 22:59 06:59 14:59 Intake Total 2000 Output Total 1575 Balance 425 Procedure in detail: I was consulted into the exploratory laparotomy case that had been started by Dr. Cassidy for acute surgical abdomen with abdominal abscess and pneumoperitoneum. There was concern that she may have had a ruptured diverticulum leading to the abscess. Dr. Cassidy had performed a midline vertical laparotomy and had performed for evaluation of the large and small intestines with no evidence of injury or perforation. She had concerns that there was a vaginal cuff dehiscence and desired to have intraoperative consult from gynecologic provider for evaluation of possible vaginal cuff dehiscence. She reported that the patient had a hysterectomy in July 2019 but was not certain of the exact type of hysterectomy. Records not available for exact type of hysterectomy. On evaluation of the pelvis there was noted to be ovaries present bilaterally that were normal in appearance. No abnormalities were noted of the ovaries. The right ovary did have a suspected physiologic cyst that measured approximately 2 cm in size. The area of the vaginal cuff was inspected and an area just to the left of midline was noted to have a small amount of erythema with granulation tissue able to be palpated. The vaginal cuff line was grasped using an Allis clamp for further evaluation of the vaginal cuff scar and there was noted to be a dehiscence of the vaginal cuff that measured approximately 4 mm in width along the vaginal cuff scar. This correlated with the area of erythema and granulation tissue. The vaginal cuff dehiscence was closed using 0 PDS suture. A second imbricating layer of vaginal cuff was sutured using 0 PDS suture. The abdomen was then irrigated and the case was completed by Dr. Cassidy. Recommended for patient to be placed on broad-spectrum antibiotics and to be discharged home with Augmentin and Flagyl for antibiotic prophylaxis. Wes Juarez MD 2:07 PM 04/27/2020
[2020-04-27] MEDS: Ketorolac 30 MG/ML SDV IVPUSH SCH ×2 (16:32→21:56)
[2020-04-27] MEDS: Ondansetron 4 MG Tab.DIS PO SCH ×2 (16:36→21:56)
[2020-04-27] MEDS: Heparin Sodium 5,000 Units/ML Vial SUBCUT SCH (16:36)
[2020-04-27] MEDS: oxyCODONE 5 MG Tab PO PRN ×2 (18:04→22:17)
[2020-04-27] MEDS: HYDROmorphone 0.5 MG/0.5 ML Syringe IVPUSH PRN (20:19)
[2020-04-27] MEDS: Piperacillin/Tazobactam 4.5 GM in Sodium Chloride 0.9% 100 ML IV SCH (21:57)
[2020-04-28] MEDS: Acetaminophen 325 MG Tab PO SCH ×5 (00:22→15:43)
[2020-04-28] MEDS: Heparin Sodium 5,000 Units/ML Vial SUBCUT SCH ×3 (00:23→15:46)
[2020-04-28] MEDS: HYDROmorphone 0.5 MG/0.5 ML Syringe IVPUSH PRN ×3 (01:51→09:24)
[2020-04-28] MEDS: Ketorolac 30 MG/ML SDV IVPUSH SCH (04:03)
[2020-04-28] MEDS: Ondansetron 4 MG Tab.DIS PO SCH ×3 (04:03→15:43)
[2020-04-28] MEDS: Piperacillin/Tazobactam 4.5 GM in Sodium Chloride 0.9% 100 ML IV SCH ×2 (06:06→13:54)
[2020-04-28] MEDS ORDERED: Potassium Chloride 20 MEQ Tab.ER PO ONE (10:00)
[2020-04-28] MEDS: Ibuprofen 600 MG Tab PO SCH ×2 (10:23→15:44)
--- NOTE | 2020-04-28 11:51 | PCM.SURGPN ---
- General Info Date of Service: 04/28/20 Admission Diagnosis/Problem: Pneumoperitoneum Functional Status: Reports: Pain Controlled, Ambulating, Urinating, Incentive Spirometry, Other (pt had watery bowel movement. Voiding after removal of castaneda catheter) - Patient Data Vitals - Most Recent: Last Vital Signs Temp 36.4 C 04/28/20 11:40 Pulse 96 04/28/20 11:40 Resp 16 04/28/20 11:40 BP 106/42 L 04/28/20 11:40 Pulse Ox 92 L 04/28/20 11:40 Weight - Most Recent: 95.209 kg I&O - Last 24 Hours: Intake & Output 04/27/20 04/28/20 04/28/20 22:59 06:59 14:59 Intake Total 120 1950 Output Total 400 1400 Balance -280 550 Lab Results Last 24 Hrs: Laboratory Results - last 24 hr 04/28/20 04/28/20 Range/Units 04:51 04:51 WBC 9.50 (3.98-10.04) K/mm3 RBC 3.61 L (3.98-5.22) M/mm3 Hgb 11.4 D (11.2-15.7) gm/dl Hct 36.6 (34.1-44.9) % MCV 101.4 H D (79.4-94.8) fl MCH 31.6 (25.6-32.2) pg MCHC 31.1 L (32.2-35.5) g/dl RDW Std Deviation 47.2 H (36.4-46.3) fL Plt Count 257 D (182-369) K/mm3 MPV 10.1 (9.4-12.3) fl Neut % (Auto) 73.9 H (34.0-71.1) % Lymph % (Auto) 20.4 (19.3-51.7) % [place] % (Auto) 4.1 L (4.7-12.5) % Eos % (Auto) 1.2 (0.7-5.8) Baso % (Auto) 0.2 (0.1-1.2) % Neut # (Auto) 7.02 H (1.56-6.13) K/mm3 Lymph # (Auto) 1.94 (1.18-3.74) K/mm3 [place] # (Auto) 0.39 H (0.24-0.36) K/mm3 Eos # (Auto) 0.11 (0.04-0.36) K/mm3 Baso # (Auto) 0.02 (0.01-0.08) K/mm3 Sodium 137 (136-145) mEq/L Potassium 3.2 L (3.5-5.1) mEq/L Chloride 103 (98-107) mEq/L Carbon Dioxide 24 (21-32) mEq/L Anion Gap 13.2 (5-15) BUN 10 (7-18) mg/dL Creatinine 0.9 (0.55-1.02) mg/dL Est Cr Clr Drug Dosing 84.79 mL/min Estimated GFR (MDRD) > 60 (>60) mL/min BUN/Creatinine Ratio 11.1 L (14-18) Glucose 83 (74-106) mg/dL Calcium 8.3 L (8.5-10.1) mg/dL Med Orders - Current: Current Medications Acetaminophen (Tylenol) 650 mg PO Q4H [facility] [place] Last Admin: 04/28/20 11:44 Dose: 650 mg Documented by: Albuterol/Ipratropium (Duoneb 3.0-0.5 Mg/3 Ml) 3 ml NEB Q4H PRN PRN Reason: Shortness Of Breath/wheezing Heparin Sodium (Porcine) (Heparin Sodium) 5,000 units SUBCUT Q8H [facility] [place] Last Admin: 04/28/20 08:07 Dose: 5,000 units Documented by: Hydromorphone HCl (Dilaudid) 0.5 mg IVPUSH Q3H PRN PRN Reason: Breakthrough Pain Last Admin: 04/28/20 09:24 Dose: 0.5 mg Documented by: Piperacillin Sod/Tazobactam (Sod 4.5 gm/ Sodium Chloride) 100 mls @ 25 mls/hr IV Q8H [facility] [place] Stop: 04/30/20 22:01 Last Admin: 04/28/20 06:06 Dose: 25 mls/hr Documented by: Ibuprofen (Motrin) 600 mg PO Q6H [facility] [place] Last Admin: 04/28/20 10:23 Dose: 600 mg Documented by: Ondansetron HCl (Zofran Odt) 4 mg PO Q6H [facility] [place] Last Admin: 04/28/20 10:23 Dose: 4 mg Documented by: Oxycodone HCl (Oxycodone) 5 mg PO Q4H PRN PRN Reason: Pain (moderate 4-6) Last Admin: 04/27/20 22:17 Dose: 5 mg Documented by: Discontinued Medications Bupivacaine HCl/Epinephrine Bitart (Marcaine 0.5%/Epinephrine 1:200,000) Confirm Administered Dose 50 ml .ROUTE .STK-MED ONE Stop: 04/27/20 07:58 Cefazolin Sodium (Ancef) 2 gm .ROUTE .STK-MED ONE Stop: 04/27/20 08:41 Diphenhydramine HCl (Benadryl) 25 mg IVPUSH Q6H PRN PRN Reason: pruritis Stop: 04/27/20 13:00 Fentanyl (Sublimaze) Confirm Administered Dose 250 mcg .ROUTE .STK-MED ONE Stop: 04/27/20 08:18 Fentanyl (Sublimaze) Confirm Administered Dose 100 mcg .ROUTE .STK-MED ONE Stop: 04/27/20 09:31 Fentanyl (Sublimaze) 50 mcg IVPUSH Q5M PRN PRN Reason: Pain Stop: 04/27/20 13:00 Last Admin: 04/27/20 11:20 Dose: 50 mcg Documented by: Fentanyl (Sublimaze) Confirm Administered Dose 100 mcg .ROUTE .STK-MED ONE Stop: 04/27/20 09:55 Fentanyl (Sublimaze) Confirm Administered Dose 100 mcg .ROUTE .STK-MED ONE Stop: 04/27/20 10:28 Hydromorphone HCl (Dilaudid) 0.5 mg IVPUSH ONETIME ONE Stop: 04/27/20 04:22 Last Admin: 04/27/20 04:30 Dose: 0.5 mg Documented by: Hydromorphone HCl (Dilaudid) 0.5 mg IVPUSH ONETIME ONE Stop: 04/27/20 05:13 Last Admin: 04/27/20 05:22 Dose: 0.5 mg Documented by: Hydromorphone HCl (Dilaudid) Confirm Administered Dose 0.5 mg .ROUTE .STK-MED ONE Stop: 04/27/20 09:01 Hydromorphone HCl (Dilaudid) Confirm Administered Dose 0.5 mg .ROUTE .STK-MED ONE Stop: 04/27/20 09:18 Hydromorphone HCl (Dilaudid) 0.5 mg IVPUSH ONETIME ONE Stop: 04/27/20 09:38 Last Admin: 04/27/20 10:45 Dose: 0.5 mg Documented by: Hydromorphone HCl (Dilaudid) 0.5 mg IVPUSH ONETIME PRN PRN Reason: Pain (severe 7-10) Last Admin: 04/27/20 11:31 Dose: 0.5 mg Documented by: Sodium Chloride (Normal Saline) 1,000 mls @ 150 mls/hr IV ASDIRECTED [facility] [place] Last Infusion: 04/27/20 05:20 Dose: 999 mls/hr Documented by: Sodium Chloride (Normal Saline) 1,000 mls @ 999 mls/hr IV ONETIME [facility] [place] Last Admin: 04/27/20 06:18 Dose: 999 mls/hr Documented by: Lidocaine HCl (Xylocaine-Mpf 1%) Confirm Administered Dose 4 mls @ as directed .ROUTE .STK-MED ONE Stop: 04/27/20 08:20 Metronidazole (Flagyl 500 Mg In Ns 100 Ml) Confirm Administered Dose 100 mls @ as directed .ROUTE .STK-MED ONE Stop: 04/27/20 08:53 Lactated Ringer's (Ringers, Lactated) Confirm Administered Dose 1,000 mls @ as directed .ROUTE .STK-MED ONE Stop: 04/27/20 09:44 Dextrose/Sodium Chloride (Dextrose 5%-1/2 Ns) 1,000 mls @ 125 mls/hr IV ASDIRECTED [facility] [place] Piperacillin Sod/Tazobactam (Sod 4.5 gm/ Sodium Chloride) 100 mls @ 200 mls/hr IV ONETIME ONE Stop: 04/27/20 14:29 Last Admin: 04/27/20 14:11 Dose: 200 mls/hr Documented by: Iopamidol (Isovue-300 (61%)) 100 ml IVPUSH ONETIME ONE Stop: 04/27/20 06:25 Last Admin: 04/27/20 06:39 Dose: 100 ml Documented by: Ketorolac Tromethamine (Toradol) 30 mg IVPUSH Q6H [facility] [place] Last Admin: 04/28/20 04:03 Dose: 30 mg Documented by: Ketorolac Tromethamine (Toradol) 30 mg .ROUTE .STK-MED ONE Stop: 04/27/20 10:01 Lidocaine/Epinephrine (Xylocaine 1% With Epinephrine 1:100,000) Confirm Administered Dose 40 ml .ROUTE .STK-MED ONE Stop: 04/27/20 07:58 Metoclopramide HCl (Reglan) 5 mg IVPUSH ONETIME ONE Stop: 04/27/20 05:13 Last Admin: 04/27/20 05:21 Dose: 5 mg Documented by: Midazolam HCl (Versed 1 Mg/Ml) Confirm Administered Dose 2 mg .ROUTE .STK-MED ONE Stop: 04/27/20 08:17 Ondansetron HCl (Zofran) 4 mg IVPUSH ONETIME ONE Stop: 04/27/20 04:22 Last Admin: 04/27/20 04:29 Dose: 4 mg Documented by: Ondansetron HCl (Zofran) 4 mg IVPUSH ONETIME PRN PRN Reason: Nausea/Vomiting Stop: 04/27/20 17:00 Ondansetron HCl (Zofran) Confirm Administered Dose 4 mg .ROUTE .STK-MED ONE Stop: 04/27/20 09:53 Potassium Chloride (Klor-Con M20) 20 meq PO ONETIME ONE Stop: 04/28/20 10:01 Last Admin: 04/28/20 10:22 Dose: 20 meq Documented by: Propofol (Diprivan 20 Ml) Confirm Administered Dose 200 mg .ROUTE .STK-MED ONE Stop: 04/27/20 08:20 Rocuronium Alex (Zemuron) Confirm Administered Dose 50 mg .ROUTE .STK-MED ONE Stop: 04/27/20 08:19 Sodium Chloride (Saline Flush) 10 ml FLUSH ASDIRECTED PRN PRN Reason: Keep Vein Open Last Admin: 04/27/20 06:39 Dose: 10 ml Documented by: - Exam Wound/Incisions: Dressing Dry and Intact (small amount of blood on inferior part of the banage) General: Alert, Oriented HEENT: EOMI Lungs: Normal Respiratory Effort GI/Abdominal Exam: Soft, Tender (appropriately) Sepsis Event Note - Evaluation Sepsis Screening Result: No Definite Risk - Focused Exam Vital Signs: Vital Signs Temp Pulse Resp BP Pulse Ox Pulse Ox 04/28/20 11:40 36.4 C 96 16 106/42 L 92 L 04/28/20 10:31 80 94 L 04/28/20 08:17 36.4 C 73 14 119/73 95 04/28/20 08:08 97 04/28/20 03:59 36.6 C 87 14 112/61 90 L 04/28/20 00:21 36.8 C 81 16 106/60 93 L - Problem List & Annotations (1) Pneumoperitoneum of unknown etiology SNOMED Code(s): 95028024 Code(s): K66.8 - OTHER SPECIFIED DISORDERS OF PERITONEUM Status: Acute Current Visit: Yes (2) Abdominal pain SNOMED Code(s): 45319758 Code(s): R10.9 - UNSPECIFIED ABDOMINAL PAIN Status: Acute Current Visit: Yes Qualifiers: Abdominal location: lower abdomen, unspecified Qualified Code(s): R10.30 - Lower abdominal pain, unspecified (3) Vaginal cuff dehiscence SNOMED Code(s): 72843637, 764724997 Code(s): T81.31XA - DISRUPTION OF EXTERNAL OPERATION (SURGICAL) WOUND, NEC, INIT Status: Acute Current Visit: Yes - Problem List Review Problem List Initiated/Reviewed/Updated: Yes - My Orders Last 24 Hours: Active Orders 24 hr Category Date Time Status Admission Status [Patient Status] [ADT] Routine ADT 04/27/20 13:32 Active Regular Diet [DIET] Diet 04/28/20 Lunch Active Acetaminophen [TylenoL] Med 04/27/20 12:00 Active 650 mg PO Q4H Heparin Sodium Med 04/27/20 16:00 Active 5,000 units SUBCUT Q8H Ibuprofen [Motrin] Med 04/28/20 10:00 Active 600 mg PO Q6H Ondansetron [Zofran ODT] Med 04/27/20 16:00 Active 4 mg PO Q6H Piperacillin/Tazobactam [Piperacil-Tazobact] 4.5 gm Med 04/27/20 22:00 Active Sodium Chloride 0.9% [Normal Saline] 100 ml IV Q8H Medication Orders Acetaminophen (Tylenol) 650 mg PO Q4H [facility] [place] Last Admin: 04/28/20 11:44 Dose: 650 mg Documented by: Admin: 04/28/20 08:05 Dose: 650 mg Documented by: Admin: 04/28/20 04:02 Dose: 650 mg Documented by: Admin: 04/28/20 00:22 Dose: 650 mg Documented by: Admin: 04/27/20 19:55 Dose: 650 mg Documented by: Admin: 04/27/20 16:35 Dose: 650 mg Documented by: Admin: 04/27/20 12:47 Dose: 650 mg Documented by: SOPHIE Albuterol/Ipratropium (Duoneb 3.0-0.5 Mg/3 Ml) 3 ml NEB Q4H PRN PRN Reason: Shortness Of Breath/wheezing Heparin Sodium (Porcine) (Heparin Sodium) 5,000 units SUBCUT Q8H [facility] [place] Last Admin: 04/28/20 08:07 Dose: 5,000 units Documented by: Admin: 04/28/20 00:23 Dose: 5,000 units Documented by: Admin: 04/27/20 16:36 Dose: 5,000 units Documented by: SOPHIE Hydromorphone HCl (Dilaudid) 0.5 mg IVPUSH Q3H PRN PRN Reason: Breakthrough Pain Last Admin: 04/28/20 09:24 Dose: 0.5 mg Documented by: Admin: 04/28/20 06:02 Dose: 0.5 mg Documented by: Admin: 04/28/20 01:51 Dose: 0.5 mg Documented by: Admin: 04/27/20 20:19 Dose: 0.5 mg Documented by: TYRON Piperacillin Sod/Tazobactam (Sod 4.5 gm/ Sodium Chloride) 100 mls @ 25 mls/hr IV Q8H [facility] [place] Stop: 04/30/20 22:01 Last Admin: 04/28/20 06:06 Dose: 25 mls/hr Documented by: Infusion: 04/28/20 01:57 Dose: 25 mls/hr Documented by: Admin: 04/27/20 21:57 Dose: 25 mls/hr Documented by: TYRON Ibuprofen (Motrin) 600 mg PO Q6H [facility] [place] Last Admin: 04/28/20 10:23 Dose: 600 mg Documented by: COLE Ondansetron HCl (Zofran Odt) 4 mg PO Q6H [facility] [place] Last Admin: 04/28/20 10:23 Dose: 4 mg Documented by: Admin: 04/28/20 04:03 Dose: 4 mg Documented by: Admin: 04/27/20 21:56 Dose: 4 mg Documented by: Admin: 04/27/20 16:36 Dose: 4 mg Documented by: SOPHIE Oxycodone HCl (Oxycodone) 5 mg PO Q4H PRN PRN Reason: Pain (moderate 4-6) Last Admin: 04/27/20 22:17 Dose: 5 mg Documented by: Admin: 04/27/20 18:04 Dose: 5 mg Documented by: SOPHIE - Assessment Assessment (Free Text/Narrative):: 30 y/o lady s/p exploratory laparotomy and repair of vaginal cuff dehiscence. Doing well - Plan Plan (Free Text/Narrative):: - regular diet - continue ambulation, SCDs, Heparin - continue incentive spirometer - Wean O2 as tolerated - transition to PO pain meds May d/c home if O2 no longer needed, pain controlled, and tolerating diet Anahi Tran MD General surgery
[2020-04-28] MEDS: oxyCODONE 5 MG Tab PO PRN (14:41)
--- NOTE | 2020-04-28 16:22 | CT ---
"Addendum created by Matthew Nichole MD on 04/27/2020 8:06 AM Central Time ([place] & [place]): This report contains findings that may be critical to patient care. The findings were verbally communicated via telephone conference with Dr. Hardy at 04/27/2020 8:06 AM CDT. The findings were acknowledged and understood. Initial Report created on 04/27/2020 7:56 AM Central Time ([place] & [place]): PROCEDURE INFORMATION: Exam: CT Abdomen And Pelvis With Contrast Exam date and time: 04/27/2020 6:27 AM Age: 30 years old Clinical indication: Localized; Patient HX: Lower abdominal pain and tenderness TECHNIQUE: Imaging protocol: Computed tomography of the abdomen and pelvis with intravenous contrast. Radiation optimization: All CT scans at this facility use at least one of these dose optimization techniques: automated exposure control; mA and/or kV adjustment per patient size (includes targeted exams where dose is matched to clinical indication); or iterative reconstruction. Contrast material: ISOVUE 300; Contrast volume: 100 ml; Contrast route: INTRAVENOUS (IV); COMPARISON: DX Abdomen 2V AP Flat Upright 04/27/2020 4:37 AM FINDINGS: Liver: Normal. No mass. Gallbladder and bile ducts: Normal. No calcified stones. No ductal dilation. Pancreas: Normal. No ductal dilation. Spleen: Normal. No splenomegaly. Adrenal glands: Normal. No mass. Kidneys and ureters: Punctate non-obstructing calculus within the lower pole of the left kidney. No hydronephrosis. Stomach and bowel: No obstruction. No mucosal thickening. Appendix: The appendix is not seen with confidence. . BRI WALLSI | Final Radiology Report CONFIDENTIALITY STATEMENT This report is intended only for use by the referring physician, and only in accordance with law. If you received this in error, call [phone]. Page 2 of 2 Intraperitoneal space: Minimal pneumoperitoneum. Mild free fluid within the pelvis. Vasculature: Unremarkable. No abdominal aortic aneurysm. Lymph nodes: Unremarkable. No enlarged lymph nodes. Urinary bladder: Unremarkable as visualized. Reproductive: Unremarkable as visualized. Bones/joints: Degenerative disc disease at the L5-S1 level. Soft tissues: Unremarkable. IMPRESSION: 1. Minimal pneumoperitoneum. 2. Mild free fluid within the pelvis. 3. Findings worrisome for ruptured viscus. Thank you for allowing us to participate in the care of your patient. Dictated and Authenticated by: Matthew Nichole MD 04/27/2020 7:56 AM Central Time ([place] & [place]) KAILEE"
--- NOTE | 2020-04-28 16:39 | PCM.DCSUM1 ---
Discharge Summary - Hospital Course Diagnosis: Stroke: No Modified Ami Scale: No Signif.Disability Despite Sympt.Able to Carry Out Usual Act./Duties Modified [place] Scale Score: 1 - Discharge Data Discharge Disposition: Home, Self-Care 01 Condition: Good - Referral to Home Health Primary Care Physician: PCP None - Discharge Diagnosis/Problem(s) (1) Pneumoperitoneum of unknown etiology SNOMED Code(s): 42410015 ICD Code: K66.8 - OTHER SPECIFIED DISORDERS OF PERITONEUM Status: Acute Current Visit: Yes (2) Abdominal pain SNOMED Code(s): 39643192 ICD Code: R10.9 - UNSPECIFIED ABDOMINAL PAIN Status: Acute Current Visit: Yes Qualifiers: Abdominal location: lower abdomen, unspecified Qualified Code(s): R10.30 - Lower abdominal pain, unspecified (3) Vaginal cuff dehiscence SNOMED Code(s): 13422928, 234704212 ICD Code: T81.31XA - DISRUPTION OF EXTERNAL OPERATION (SURGICAL) WOUND, NEC, INIT Status: Acute Current Visit: Yes - Patient Summary/Data Operative Procedure(s) Performed: Repair of vaginal dehiscence following previous total laparoscopic hysterectomy - Patient Instructions Diet: Usual Diet as Tolerated Activity: As Tolerated, No Lifting Over 20 Pounds (for 2 weeks), No Lifting Over 25 Pounds (for 4-6 weeks), No Strenuous Activities (for 2 weeks) Activity, Other: Nothing in the vagina for 6 weeks. Driving: Do Not Drive (while taking narcotics) Showering/Bathing: May Shower (starting 04/29/2020), No Tub Bathing/Swimming (for 2 weeks) Wound/Incision Care: Keep Operative Site/Wound Site Clean and Dry Notify Provider of: Fever, Increased Pain, Swelling and Redness, Drainage, Nausea and/or Vomiting - Discharge Plan *PRESCRIPTION DRUG MONITORING PROGRAM REVIEWED*: Not Applicable *COPY OF PRESCRIPTION DRUG MONITORING REPORT IN PATIENT [place]APHA: Not Applicable Prescriptions/Med Rec: Amoxicillin/Clavulanate K [Augmentin 875-125 MG] 1 tab PO BID 12 Days #24 tablet Docusate Sodium [Colace] 100 mg PO BID 20 Days #40 cap metroNIDAZOLE [Flagyl] 500 mg PO Q8H 12 Days #36 tab Ibuprofen [Motrin] 600 mg PO Q6H PRN 20 Days #120 tablet PRN Reason: Pain oxyCODONE 5 mg PO Q4H PRN 14 Days #20 tablet PRN Reason: Pain (Moderate 4-6) Acetaminophen [Tylenol] 650 mg PO Q4H PRN 14 Days #120 tablet PRN Reason: Pain Ondansetron [Zofran ODT] 4 mg PO Q6H PRN 14 Days #30 tab.dis PRN Reason: Nausea Home Medications: Home Meds Acetaminophen [Tylenol] 650 mg PO Q4H PRN 14 Days #120 tablet 04/28/20 [Rx] Amoxicillin/Clavulanate K [Augmentin 875-125 MG] 1 tab PO BID 12 Days #24 tablet 04/28/20 [Rx] Docusate Sodium [Colace] 100 mg PO BID 20 Days #40 cap 04/28/20 [Rx] Ibuprofen [Motrin] 600 mg PO Q6H PRN 20 Days #120 tablet 04/28/20 [Rx] Ondansetron [Zofran ODT] 4 mg PO Q6H PRN 14 Days #30 tab.dis 04/28/20 [Rx] metroNIDAZOLE [Flagyl] 500 mg PO Q8H 12 Days #36 tab 04/28/20 [Rx] oxyCODONE 5 mg PO Q4H PRN 14 Days #20 tablet 04/28/20 [Rx] Patient Handouts: Sepsis, Diagnosis, Adult, Steps to Quit Smoking Forms: ED Department Discharge Referrals: PCP,None [Primary Care Provider] - Chuyita Eddy [facility] [Nurse Practitioner] - (Follow up in 2 weeks ) Wes Juarez MD [Physician] - (follow up in 1-2 weeks) - Patient Data Vitals - Most Recent: Last Vital Signs Temp 36.7 C 04/28/20 15:50 Pulse 88 04/28/20 15:50 Resp 20 04/28/20 15:50 BP 104/67 04/28/20 15:50 Pulse Ox 92 L 04/28/20 15:50 Weight - Most Recent: 95.209 kg I&O - Last 24 hours: Intake & Output 04/28/20 04/28/20 04/28/20 06:59 14:59 22:59 Intake Total 4107 558 1008 Output Total 1400 1375 Balance 550 320 265 Lab Results - Last 24 hrs: Laboratory Results - last 24 hr 04/28/20 04/28/20 Range/Units 04:51 04:51 WBC 9.50 (3.98-10.04) K/mm3 RBC 3.61 L (3.98-5.22) M/mm3 Hgb 11.4 D (11.2-15.7) gm/dl Hct 36.6 (34.1-44.9) % MCV 101.4 H D (79.4-94.8) fl MCH 31.6 (25.6-32.2) pg MCHC 31.1 L (32.2-35.5) g/dl RDW Std Deviation 47.2 H (36.4-46.3) fL Plt Count 257 D (182-369) K/mm3 MPV 10.1 (9.4-12.3) fl Neut % (Auto) 73.9 H (34.0-71.1) % Lymph % (Auto) 20.4 (19.3-51.7) % [place] % (Auto) 4.1 L (4.7-12.5) % Eos % (Auto) 1.2 (0.7-5.8) Baso % (Auto) 0.2 (0.1-1.2) % Neut # (Auto) 7.02 H (1.56-6.13) K/mm3 Lymph # (Auto) 1.94 (1.18-3.74) K/mm3 [place] # (Auto) 0.39 H (0.24-0.36) K/mm3 Eos # (Auto) 0.11 (0.04-0.36) K/mm3 Baso # (Auto) 0.02 (0.01-0.08) K/mm3 Sodium 137 (136-145) mEq/L Potassium 3.2 L (3.5-5.1) mEq/L Chloride 103 (98-107) mEq/L Carbon Dioxide 24 (21-32) mEq/L Anion Gap 13.2 (5-15) BUN 10 (7-18) mg/dL Creatinine 0.9 (0.55-1.02) mg/dL Est Cr Clr Drug Dosing 84.79 mL/min Estimated GFR (MDRD) > 60 (>60) mL/min BUN/Creatinine Ratio 11.1 L (14-18) Glucose 83 (74-106) mg/dL Calcium 8.3 L (8.5-10.1) mg/dL Med Orders - Current: Current Medications Acetaminophen (Tylenol) 650 mg PO Q4H [facility] Last Admin: 04/28/20 15:43 Dose: 650 mg Documented by: Albuterol/Ipratropium (Duoneb 3.0-0.5 Mg/3 Ml) 3 ml NEB Q4H PRN PRN Reason: Shortness Of Breath/wheezing Heparin Sodium (Porcine) (Heparin Sodium) 5,000 units SUBCUT Q8H [facility] Last Admin: 04/28/20 15:46 Dose: 5,000 units Documented by: Hydromorphone HCl (Dilaudid) 0.5 mg IVPUSH Q3H PRN PRN Reason: Breakthrough Pain Last Admin: 04/28/20 09:24 Dose: 0.5 mg Documented by: Piperacillin Sod/Tazobactam (Sod 4.5 gm/ Sodium Chloride) 100 mls @ 25 mls/hr IV Q8H [facility] Stop: 04/30/20 22:01 Last Admin: 04/28/20 13:54 Dose: 25 mls/hr Documented by: Ibuprofen (Motrin) 600 mg PO Q6H [facility] Last Admin: 04/28/20 15:44 Dose: 600 mg Documented by: Ondansetron HCl (Zofran Odt) 4 mg PO Q6H [facility] Last Admin: 04/28/20 15:43 Dose: 4 mg Documented by: Oxycodone HCl (Oxycodone) 5 mg PO Q4H PRN PRN Reason: Pain (moderate 4-6) Last Admin: 04/28/20 14:41 Dose: 5 mg Documented by: Discontinued Medications Bupivacaine HCl/Epinephrine Bitart (Marcaine 0.5%/Epinephrine 1:200,000) Confirm Administered Dose 50 ml .ROUTE .STK-MED ONE Stop: 04/27/20 07:58 Cefazolin Sodium (Ancef) 2 gm .ROUTE .STK-MED ONE Stop: 04/27/20 08:41 Diphenhydramine HCl (Benadryl) 25 mg IVPUSH Q6H PRN PRN Reason: pruritis Stop: 04/27/20 13:00 Fentanyl (Sublimaze) Confirm Administered Dose 250 mcg .ROUTE .STK-MED ONE Stop: 04/27/20 08:18 Fentanyl (Sublimaze) Confirm Administered Dose 100 mcg .ROUTE .STK-MED ONE Stop: 04/27/20 09:31 Fentanyl (Sublimaze) 50 mcg IVPUSH Q5M PRN PRN Reason: Pain Stop: 04/27/20 13:00 Last Admin: 04/27/20 11:20 Dose: 50 mcg Documented by: Fentanyl (Sublimaze) Confirm Administered Dose 100 mcg .ROUTE .STK-MED ONE Stop: 04/27/20 09:55 Fentanyl (Sublimaze) Confirm Administered Dose 100 mcg .ROUTE .STK-MED ONE Stop: 04/27/20 10:28 Hydromorphone HCl (Dilaudid) 0.5 mg IVPUSH ONETIME ONE Stop: 04/27/20 04:22 Last Admin: 04/27/20 04:30 Dose: 0.5 mg Documented by: Hydromorphone HCl (Dilaudid) 0.5 mg IVPUSH ONETIME ONE Stop: 04/27/20 05:13 Last Admin: 04/27/20 05:22 Dose: 0.5 mg Documented by: Hydromorphone HCl (Dilaudid) Confirm Administered Dose 0.5 mg .ROUTE .STK-MED ONE Stop: 04/27/20 09:01 Hydromorphone HCl (Dilaudid) Confirm Administered Dose 0.5 mg .ROUTE .STK-MED ONE Stop: 04/27/20 09:18 Hydromorphone HCl (Dilaudid) 0.5 mg IVPUSH ONETIME ONE Stop: 04/27/20 09:38 Last Admin: 04/27/20 10:45 Dose: 0.5 mg Documented by: Hydromorphone HCl (Dilaudid) 0.5 mg IVPUSH ONETIME PRN PRN Reason: Pain (severe 7-10) Last Admin: 04/27/20 11:31 Dose: 0.5 mg Documented by: Sodium Chloride (Normal Saline) 1,000 mls @ 150 mls/hr IV ASDIRECTED [facility] Last Infusion: 04/27/20 05:20 Dose: 999 mls/hr Documented by: Sodium Chloride (Normal Saline) 1,000 mls @ 999 mls/hr IV ONETIME [facility] Last Admin: 04/27/20 06:18 Dose: 999 mls/hr Documented by: Lidocaine HCl (Xylocaine-Mpf 1%) Confirm Administered Dose 4 mls @ as directed .ROUTE .STK-MED ONE Stop: 04/27/20 08:20 Metronidazole (Flagyl 500 Mg In Ns 100 Ml) Confirm Administered Dose 100 mls @ as directed .ROUTE .STK-MED ONE Stop: 04/27/20 08:53 Lactated Ringer's (Ringers, Lactated) Confirm Administered Dose 1,000 mls @ as directed .ROUTE .STK-MED ONE Stop: 04/27/20 09:44 Dextrose/Sodium Chloride (Dextrose 5%-1/2 Ns) 1,000 mls @ 125 mls/hr IV ASDIRECTED LULA Piperacillin Sod/Tazobactam (Sod 4.5 gm/ Sodium Chloride) 100 mls @ 200 mls/hr IV ONETIME ONE Stop: 04/27/20 14:29 Last Admin: 04/27/20 14:11 Dose: 200 mls/hr Documented by: Iopamidol (Isovue-300 (61%)) 100 ml IVPUSH ONETIME ONE Stop: 04/27/20 06:25 Last Admin: 04/27/20 06:39 Dose: 100 ml Documented by: Ketorolac Tromethamine (Toradol) 30 mg IVPUSH Q6H [facility] Last Admin: 04/28/20 04:03 Dose: 30 mg Documented by: Ketorolac Tromethamine (Toradol) 30 mg .ROUTE .STK-MED ONE Stop: 04/27/20 10:01 Lidocaine/Epinephrine (Xylocaine 1% With Epinephrine 1:100,000) Confirm Administered Dose 40 ml .ROUTE .STK-MED ONE Stop: 04/27/20 07:58 Metoclopramide HCl (Reglan) 5 mg IVPUSH ONETIME ONE Stop: 04/27/20 05:13 Last Admin: 04/27/20 05:21 Dose: 5 mg Documented by: Midazolam HCl (Versed 1 Mg/Ml) Confirm Administered Dose 2 mg .ROUTE .STK-MED ONE Stop: 04/27/20 08:17 Ondansetron HCl (Zofran) 4 mg IVPUSH ONETIME ONE Stop: 04/27/20 04:22 Last Admin: 04/27/20 04:29 Dose: 4 mg Documented by: Ondansetron HCl (Zofran) 4 mg IVPUSH ONETIME PRN PRN Reason: Nausea/Vomiting Stop: 04/27/20 17:00 Ondansetron HCl (Zofran) Confirm Administered Dose 4 mg .ROUTE .STK-MED ONE Stop: 04/27/20 09:53 Potassium Chloride (Klor-Con M20) 20 meq PO ONETIME ONE Stop: 04/28/20 10:01 Last Admin: 04/28/20 10:22 Dose: 20 meq Documented by: Propofol (Diprivan 20 Ml) Confirm Administered Dose 200 mg .ROUTE .STK-MED ONE Stop: 04/27/20 08:20 Rocuronium [place] (Zemuron) Confirm Administered Dose 50 mg .ROUTE .STK-MED ONE Stop: 04/27/20 08:19 Sodium Chloride (Saline Flush) 10 ml FLUSH ASDIRECTED PRN PRN Reason: Keep Vein Open Last Admin: 04/27/20 06:39 Dose: 10 ml Documented by:
== END 2020-04-28 18:50 | disposition home or self-care (01) | DRG 793 ==
LOC: JD.ED 03:48 → JD.SDS 07:42 → JD.MS 07:42 → JD.SDS 13:31 → JD.MS 13:32
PROVIDERS: ADMIT Surgery; ATTEND Surgery
PROC: 0UQG0ZZ Repair Vagina, Open Approach (ICD-10-PCS; principal; 2020-04-27)
DX: T81.31XA Disruption of external operation (surgical) wound, not elsewhere classified, initial encounter (principal); K66.8 Other specified disorders of peritoneum; Z79.899 Other long term (current) drug therapy; H54.7 Unspecified visual loss; E66.9 Obesity, unspecified; F17.210 Nicotine dependence, cigarettes, uncomplicated; Z90.49 Acquired absence of other specified parts of digestive tract; Z90.710 Acquired absence of both cervix and uterus; N73.9 Female pelvic inflammatory disease, unspecified; Z20.828 Contact with and (suspected) exposure to other viral communicable diseases
CPT/HCPCS: 00840; 36415; 74019; 74019-26; 74177; 74177-26; 80048; 80053; 81003; 85025; 94761; 96374; 96375; 96376; 99285-25; A9270-GY; J0330; J0690; J1170; J1644; J1885; J2001; J2250; J2405; J2543; J2704; J2765; J3010; J3490; J7030; J7050; J7120; Q9967; U0002